=== PATIENT | female | born 2000 | race Caucasian/White ===

== ENCOUNTER 2022-09-26 20:38 | Emergency (ER) | payer BC ==
[2022-09-26] MEDS ORDERED: Lidocaine 1% 10 ML MDV INJECT ONE (21:56)
[2022-09-26] MEDS ORDERED: Diphtheria/Tetanus Toxoids,Adult (Td) 0.5 ML SDV IM ONE (21:57)
[2022-09-26] MEDS ORDERED: Bacitracin Oint 1 GM U/D Packet TOP ONE (21:57)
[2022-09-26] MEDS ORDERED: Diphtheria,Pertussis(Acell),Tetanus Vaccine 0.5 ML Syringe IM ONE (22:02)
== END 2022-09-26 22:51 | disposition home or self-care (01) ==
LOC: JP.ED 20:38
DX: S41.151A Open bite of right upper arm, initial encounter (principal); Z23 Encounter for immunization; W54.0XXA Bitten by dog, initial encounter
CPT/HCPCS: 12001; 90471; 90715; 99283-25